=== PATIENT | female | born 1955 | race Caucasian/White ===

== ENCOUNTER 2018-05-18 02:22 | Emergency (ER) | payer MEDICAID ==
[~2018-05-18] VITALS: Ht 160 cm; Wt 52.6 kg
[2018-05-18 02:33] VITALS: Ht 160 cm; Wt 52.6 kg
[2018-05-18 03:23] LABS: CALCIUM 8.2 mg/dL (8.5-10.1); CARBON DIOXIDE 26.9 mmol/L (21-32); CHLORIDE SERUM 102 mmol/L (98-107); CREATININE SERUM 0.5 mg/dL (0.6-1.0); GFR1 > 60 mL/min; GLUCOSE SERUM 191 mg/dL (74-106); POTASSIUM SERUM 3.6 mmol/L (3.5-5.1); SODIUM SERUM 135 mmol/L (136-145)
[2018-05-18 03:26] LABS: BASOPHIL % 0.6 % (0-2); PLATELET COUNT 184 x10^3mcL (130-400); RED CELL DISTRIBUTION WIDTH 12.6 % (11.5-14.5)
[2018-05-18 03:29] LABS: ALBUMIN 3.6 g/dL (3.4-5.0); ALKALINE PHOSPHATASE 111 U/L (46-116); ALT/SGPT 62 U/L (14-59); AST/SGOT 41 U/L (15-37); BILIRUBIN TOTAL 0.3 mg/dL (0.20-1.00); TOTAL PROTEIN, SERUM 7.7 g/dL (6.4-8.2)
[2018-05-18 04:34] LABS: microscopic required? YES; urine erythrocyte NEGATIVE (NEGATIVE)
[2018-05-18 05:22] VITALS: BP 139/78
== END 2018-05-18 05:22 | disposition home or self-care (01) ==
LOC: ED 02:22
PROVIDERS: Emergency Medicine
DX: R42 Dizziness and giddiness (principal); R51 Headache; R11.2 Nausea with vomiting, unspecified; E11.9 Type 2 diabetes mellitus without complications; I10 Essential (primary) hypertension; E78.00 Pure hypercholesterolemia, unspecified; Z98.51 Tubal ligation status
CPT/HCPCS: J2405; J3490; J7040; J8597

== ENCOUNTER 2020-03-19 01:23 | Emergency (ER) | payer MEDICAID ==
[~2020-03-19] VITALS: Ht 154.9 cm; Wt 53.1 kg
[2020-03-19 01:38] VITALS: Ht 154.9 cm; Wt 53.1 kg
[2020-03-19] MEDS ORDERED: V5 (02:56)
[2020-03-19] MEDS ORDERED: GLUMETZA500 MG (02:57)
[2020-03-19] MEDS ORDERED: TRAZODONE50 M1 (02:57)
[2020-03-19 03:08] LABS: BASOPHIL % 0.5 % (0-2); PLATELET COUNT 153 x10^3mcL (130-400); RED CELL DISTRIBUTION WIDTH 13.3 % (11.5-14.5)
[2020-03-19 03:47] LABS: CALCIUM 8.8 mg/dL (8.5-10.1); CARBON DIOXIDE 33.8 mmol/L (21-32); CHLORIDE SERUM 101 mmol/L (98-107); CREATININE SERUM 0.6 mg/dL (0.6-1.0); GFR1 > 60 mL/min; GLUCOSE SERUM 208 mg/dL (74-106); POTASSIUM SERUM 3.5 mmol/L (3.5-5.1); SODIUM SERUM 137 mmol/L (136-145)
[2020-03-19 04:00] LABS: ALBUMIN 3.8 g/dL (3.4-5.0); ALKALINE PHOSPHATASE 97 U/L (46-116); ALT/SGPT 103 U/L (14-59); AST/SGOT 90 U/L (15-37); BILIRUBIN TOTAL 0.34 mg/dL (0.20-1.00); LIPASE 181 IU/L (73-393); TOTAL PROTEIN, SERUM 7.7 g/dL (6.4-8.2)
[2020-03-19 06:09] VITALS: BP 134/71
== END 2020-03-19 07:54 | disposition home or self-care (01) ==
LOC: ED 01:23
PROVIDERS: Emergency Medicine
DX: R10.816 Epigastric abdominal tenderness (principal); E78.00 Pure hypercholesterolemia, unspecified; R42 Dizziness and giddiness; R51 Headache; E11.9 Type 2 diabetes mellitus without complications; I10 Essential (primary) hypertension; R53.1 Weakness
CPT/HCPCS: 83880; J2405; J3490; Q0092

== ENCOUNTER 2020-04-30 17:14 | Emergency (ER) | payer MEDICAID ==
[~2020-04-30] VITALS: Ht 152.4 cm; Wt 52.2 kg
[~2020-04-30 17:14] MED LIST: GLUMETZA500 MG; TRAZODONE50 M1; V5
[2020-04-30 17:22] VITALS: Ht 152.4 cm; Wt 52.2 kg
[2020-04-30 18:33] LABS: BASOPHIL % 0.6 % (0-2); PLATELET COUNT 180 x10^3mcL (130-400); RED CELL DISTRIBUTION WIDTH 13.3 % (11.5-14.5)
[2020-04-30 18:50] LABS: CALCIUM 9.2 mg/dL (8.5-10.1); CARBON DIOXIDE 24.6 mmol/L (21-32); CHLORIDE SERUM 103 mmol/L (98-107); CREATININE SERUM 0.6 mg/dL (0.6-1.0); GFR1 > 60 mL/min; GLUCOSE SERUM 173 mg/dL (74-106); POTASSIUM SERUM 3.7 mmol/L (3.5-5.1); SODIUM SERUM 137 mmol/L (136-145)
[2020-04-30 18:54] LABS: ALKALINE PHOSPHATASE 83 U/L (46-116); ALT/SGPT 39 U/L (14-59); AST/SGOT 33 U/L (15-37); BILIRUBIN TOTAL 0.4 mg/dL (0.20-1.00); CHOLESTEROL 135 mg/dL (<200); CHOLESTEROL/HDL RATIO 2.9; HDL CHOLESTEROL 46 mg/dL (40-60); TRIGLYCERIDES 164 mg/dL (<150)
[2020-04-30 19:36] VITALS: BP 141/72
== END 2020-04-30 19:37 | disposition home or self-care (01) ==
LOC: ED 17:14
PROVIDERS: Specialist
DX: H65.92 Unspecified nonsuppurative otitis media, left ear (principal); R42 Dizziness and giddiness; H72.92 Unspecified perforation of tympanic membrane, left ear; E11.9 Type 2 diabetes mellitus without complications; I10 Essential (primary) hypertension; E78.00 Pure hypercholesterolemia, unspecified
CPT/HCPCS: 82962; 83880; J1885

== ENCOUNTER 2020-07-23 11:21 | Emergency (ER) | payer MEDICAID, SELFPAY ==
[~2020-07-23] VITALS: Ht 154.9 cm; Wt 68.0 kg
[~2020-07-23 11:21] MED LIST changes: -GLUMETZA500 MG; +GLUMETZA500 MG PO; -TRAZODONE50 M1; +TRAZODONE50 M1 PO; -V5; +V5 PO
[2020-07-23 11:29] VITALS: Ht 154.9 cm; Wt 68.0 kg
[2020-07-23 12:18] VITALS: BP 116/63
[2020-07-28] MEDS ORDERED: DECADRON6 MG PO (09:28)
[2020-07-28] MEDS ORDERED: GLIPIZIDE XL5 M2 PO (13:38)
== END 2020-07-23 12:18 | disposition home or self-care (01) ==
LOC: ED 11:21
DX: U07.1 COVID-19 (principal); B34.9 Viral infection, unspecified; H92.02 Otalgia, left ear; I10 Essential (primary) hypertension; E11.9 Type 2 diabetes mellitus without complications; E78.00 Pure hypercholesterolemia, unspecified
CPT/HCPCS: U0003